=== PATIENT | female | born 1980 | race African-American/Black ===

== ENCOUNTER 2018-11-05 19:57 | Emergency (ER) | payer MEDICAID ==
[~2018-11-05] VITALS: Ht 165.1 cm; Wt 113.0 kg
[2018-11-06] MEDS ORDERED: SODIUM CHLORIDE 0.9% 1,000 ML IV ONE (01:15)
[2018-11-06] MEDS ORDERED: KETOROLAC 30MG/ML VIAL IV ONE (01:15)
[2018-11-06] MEDS ORDERED: ONDANSETRON HCL 4MG/2ML INJ IV ONE (01:15)
[2018-11-06 03:04] VITALS: BP 125/76
== END 2018-11-06 03:07 | disposition home or self-care (01) ==
LOC: ER 21:05
DX: R51 Headache (principal); J32.9 Chronic sinusitis, unspecified; K02.9 Dental caries, unspecified; R60.9 Edema, unspecified; J45.909 Unspecified asthma, uncomplicated; H53.8 Other visual disturbances; F12.10 Cannabis abuse, uncomplicated; Z90.710 Acquired absence of both cervix and uterus; Z91.041 Radiographic dye allergy status
CPT/HCPCS: 81025; 96374; 96375; 99283; J1885; J2405; J7030; Z7610